=== PATIENT | female | born 1990 | race African-American/Black ===

== ENCOUNTER 2017-05-18 14:21 | Emergency (ER) | payer OTHER ==
[2017-05-18] MEDS ORDERED: Ketorolac Tromethamine 30 MG/ML VIAL ONE (15:15)
[2017-05-18] MEDS ORDERED: Metoclopramide HCl 10 MG/2 ML VIAL ONE (15:15)
[2017-05-18] MEDS ORDERED: diphenhydrAMINE 50 MG/ML VIAL ONE (15:15)
== END 2017-05-18 15:18 | disposition home or self-care (01) ==
LOC: SCSER 14:21
DX: G43.909 Migraine, unspecified, not intractable, without status migrainosus (principal); K21.9 Gastro-esophageal reflux disease without esophagitis; F41.9 Anxiety disorder, unspecified; F31.9 Bipolar disorder, unspecified
CPT/HCPCS: 99283; J1200; J1885; J2765